=== PATIENT | male | born 1960 | race Caucasian/White ===

== ENCOUNTER 2024-08-17 12:10 | Emergency (ER) | payer OTHER ==
[~2024-08-17] VITALS: Ht 188 cm; Wt 91.5 kg
--- OUTSIDE RECORDS SUMMARY | 2024-08-17 12:44 | XMS ---
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 E.D. VISIT COUNT (12 MO.) 6 [facility] TOTAL 6 NOTE: Visits indicate total known visits. ED/UCC VISIT TRACKING (12 MO.) 08/17/2024 12:11 [facility] TYPE: Emergency COMPLAINT: - SHOULDER PAIN 01/20/2024 17:03 [facility] TYPE: Emergency COMPLAINT: - ABDOMINAL PAIN DIAGNOSES: - Left lower quadrant pain - Left upper quadrant pain - Nicotine dependence, unspecified, uncomplicated - Other exterminator termite (current) drug therapy 12/25/2023 08:57 [facility] TYPE: Emergency COMPLAINT: - WOUND CHECK DIAGNOSES: - Encounter for surgical aftercare following surgery on the skin and subcutaneous tissue - Other exterminator termite (current) drug therapy - Unspecified glaucoma 12/24/2023 08:44 [facility] TYPE: Emergency COMPLAINT: - L LEG SWOLLEN/PAIN, POSS BLOODCLOT DIAGNOSES: - Pain in left leg - Synovial cyst of popliteal space [Beth], left knee - Unspecified glaucoma 12/23/2023 16:57 [facility] TYPE: Emergency COMPLAINT: - LT LEG PAIN/ NO INJ 10/10/2023 09:12 [facility] TYPE: Emergency COMPLAINT: - ABD PAIN DIAGNOSES: - Nicotine dependence, unspecified, uncomplicated - Other senior care (current) drug therapy - Unspecified abdominal pain INPATIENT VISIT TRACKING (12 MO.) No inpatient visits to display in this time frame [email or web address]
[2024-08-17] MEDS ORDERED: IBU600 MG PO (13:56)
[2024-08-17] MEDS ORDERED: HYDROCODON-ACE1 EA10 PO (13:56)
[2024-08-17] MEDS ORDERED: HYDROCODONE/ACETA 5/325 TAB PO ONE (14:00)
[2024-08-17] MEDS ORDERED: ONDANSETRON 4 MG TAB ODT SL ONE (14:00)
[2024-08-17 14:21] VITALS: BP 146/84
== END 2024-08-17 14:28 | disposition home or self-care (01) ==
LOC: ED 12:10
DX: M25.511 Pain in right shoulder (principal); V18.0XXA Pedal cycle driver injured in noncollision transport accident in nontraffic accident, initial encounter
CPT/HCPCS: 73030; 99283; A9270